=== PATIENT | male | born 1965 | race Caucasian/White ===

== ENCOUNTER 2022-09-13 14:06 | Inpatient (IN) | payer OTHER ==
[2022-09-13 16:00] VITALS: BMI 31.7
[2022-09-13] MEDS ORDERED: ACETAMINOPHEN 325 MG TABLET (FP) PO PRN ×2 (16:57)
[2022-09-13] MEDS ORDERED: BENZOCAINE/MENTHOL (CHLORASEPTIC ) LOZENGE MM PRN (16:57)
[2022-09-13] MEDS ORDERED: ONDANSETRON *ODT* 4 MG TABLET SL PRN (16:57)
[2022-09-13] MEDS ORDERED: MAG HYDROX/AL HYDROX/SIMETH 30 ML UNIT-DOSE CUP PO PRN (16:57)
[2022-09-13] MEDS ORDERED: MAGNESIUM HYDROX 2400MG/30ML ORAL SUSPENSION 30 ML CUP PO PRN (16:57)
[2022-09-13] MEDS ORDERED: guaiFENesin 200 MG/10 ML 10 ML UNIT-DOSE CUPS PO PRN (16:57)
[2022-09-13] MEDS ORDERED: POLYETHYLENE GLYCOL (HEALTHYLAX) 3350 17 GM PACKET PO PRN (16:57)
[2022-09-13] MEDS ORDERED: LOPERAMIDE HCL 2 MG CAPSULE PO PRN (16:57)
[2022-09-13] MEDS ORDERED: P-EPHED 60MG/TRIPROLIDI 2.5MG TABLET PO PRN (16:57)
[2022-09-13] MEDS ORDERED: METHOCARBAMOL 500 MG TABLET PO PRN (16:57)
[2022-09-13] MEDS ORDERED: DICYCLOMINE HCL 10 MG CAPSULE PO PRN (16:57)
[2022-09-13] MEDS ORDERED: BISMUTH SUBSALICYLATE 524 MG/30 ML PO PRN (16:57)
[2022-09-13] MEDS ORDERED: diazePAM 5 MG TABLET ONE (18:13)
[2022-09-13] MEDS ORDERED: diazePAM 5 MG TABLET PO SCH (18:15)
[2022-09-13] MEDS ORDERED: TIZANIDINE HCL 4 MG TABLET PO PRN (19:00)
[2022-09-13] MEDS ORDERED: traZODone HCL 50 MG TABLET (FP) PO ONE (22:00)
[2022-09-13] MEDS: MELATONIN 5 MG TABLETS PO PRN (22:23)
[2022-09-13] MEDS: CARVEDILOL 25 MG TABLET (FP) PO SCH (22:23)
[2022-09-13] MEDS: THIAMINE HCL 100 MG TABLET (FP) PO SCH (22:23)
[2022-09-13] MEDS: diazePAM 5 MG TABLET PO PRN (22:24)
[2022-09-13] MEDS: ATORVASTATIN CA 40 MG TABLET (FP) PO SCH (23:01)
[2022-09-14] MEDS: diazePAM 5 MG TABLET PO SCH ×4 (05:37→22:13)
[2022-09-14] MEDS: CARVEDILOL 25 MG TABLET (FP) PO SCH ×2 (10:18→22:12)
[2022-09-14] MEDS: PRENATAL VITAMINS W/ FOLIC ACID TABLET (FP) PO SCH (10:18)
[2022-09-14] MEDS: NIFEdipine E.R. 90 MG TABLET PO SCH (10:18)
[2022-09-14] MEDS: ASPIRIN 81 MG CHEWABLE TABLETS PO SCH (10:18)
[2022-09-14 10:43] LABS: HEMATOCRIT 38.4 % (35.4-49); HEMOGLOBIN 13.4 GM/dL (11.7-16.9); MCH 30.8 pg (25.7-33.7); MCHC 34.9 g/dl (32.0-35.9); MEAN CELL VOLUME 88.4 fl (80-96); MEAN PLT VOLUME 7.1 fl (7.5-11.1); PLATELET COUNT 288 10^3/uL (134-434); RBC 4.34 M/mm3 (4.00-5.60); RDW 13.6 % (11.9-15.9); WHITE BLOOD COUNT 10.4 K/mm3 (4.0-10.0)
[2022-09-14 12:42] LABS: CALCIUM 9.4 mg/dL (8.5-10.1)
[2022-09-14 12:43] LABS: ALBUMIN 3.7 g/dl (3.4-5.0); BLOOD UREA NITROGEN 50.1 mg/dL (7-18)
[2022-09-14 12:45] LABS: CREATININE 3.2 mg/dL (0.55-1.3)
[2022-09-14 12:46] LABS: BILIRUBIN,TOTAL 0.6 mg/dL (0.2-1)
[2022-09-14 12:47] LABS: TOT PROT 7.8 g/dl (6.4-8.2)
[2022-09-14] MEDS ORDERED: traZODone HCL 100 MG TABLET (FP) PO SCH (22:00)
[2022-09-14] MEDS: MELATONIN 5 MG TABLETS PO PRN (22:11)
[2022-09-14] MEDS: traZODone HCL 50 MG TABLET (FP) PO SCH (22:12)
[2022-09-14] MEDS: ATORVASTATIN CA 40 MG TABLET (FP) PO SCH (22:12)
[2022-09-14] MEDS: hydrOXYzine PAMOATE 25 MG CAPSULE (FP) PO PRN (22:12)
[2022-09-14] MEDS: THIAMINE HCL 100 MG TABLET (FP) PO SCH (22:12)
[2022-09-15] MEDS: diazePAM 5 MG TABLET PO SCH ×4 (05:53→22:14)
[2022-09-15] MEDS: PRENATAL VITAMINS W/ FOLIC ACID TABLET (FP) PO SCH (10:08)
[2022-09-15] MEDS: NIFEdipine E.R. 90 MG TABLET PO SCH (10:09)
[2022-09-15] MEDS: ASPIRIN 81 MG CHEWABLE TABLETS PO SCH (10:09)
[2022-09-15] MEDS: diazePAM 5 MG TABLET PO PRN (10:11)
[2022-09-15] MEDS: CARVEDILOL 25 MG TABLET (FP) PO SCH ×2 (11:46→22:13)
[2022-09-15] MEDS: ATORVASTATIN CA 40 MG TABLET (FP) PO SCH (22:13)
[2022-09-15] MEDS: traZODone HCL 50 MG TABLET (FP) PO SCH (22:13)
[2022-09-15] MEDS: THIAMINE HCL 100 MG TABLET (FP) PO SCH (22:13)
[2022-09-15] MEDS: MELATONIN 5 MG TABLETS PO PRN (22:13)
[2022-09-15] MEDS: hydrOXYzine PAMOATE 25 MG CAPSULE (FP) PO PRN (22:13)
[2022-09-16] MEDS: diazePAM 5 MG TABLET PO SCH ×2 (05:58→18:13)
[2022-09-16] MEDS: CARVEDILOL 25 MG TABLET (FP) PO SCH ×2 (10:04→22:14)
[2022-09-16] MEDS: PRENATAL VITAMINS W/ FOLIC ACID TABLET (FP) PO SCH (10:04)
[2022-09-16] MEDS: NIFEdipine E.R. 90 MG TABLET PO SCH (10:04)
[2022-09-16] MEDS: ASPIRIN 81 MG CHEWABLE TABLETS PO SCH (10:04)
[2022-09-16] MEDS: diazePAM 5 MG TABLET PO PRN (10:06)
[2022-09-16] MEDS: MELATONIN 5 MG TABLETS PO PRN (22:13)
[2022-09-16] MEDS: hydrOXYzine PAMOATE 25 MG CAPSULE (FP) PO PRN (22:14)
[2022-09-16] MEDS: THIAMINE HCL 100 MG TABLET (FP) PO SCH (22:14)
[2022-09-16] MEDS: ATORVASTATIN CA 40 MG TABLET (FP) PO SCH (22:14)
[2022-09-16] MEDS: traZODone HCL 50 MG TABLET (FP) PO SCH (22:14)
[2022-09-17] MEDS ORDERED: diazePAM 5 MG TABLET PO ONE (06:00)
[2022-09-17] MEDS: ASPIRIN 81 MG CHEWABLE TABLETS PO SCH (10:09)
[2022-09-17] MEDS: PRENATAL VITAMINS W/ FOLIC ACID TABLET (FP) PO SCH (10:09)
[2022-09-17] MEDS: CARVEDILOL 25 MG TABLET (FP) PO SCH (10:09)
[2022-09-17] MEDS: NIFEdipine E.R. 90 MG TABLET PO SCH (10:09)
[2022-09-17 10:24] VITALS: BP 119/73; PULSE 74; RESP 18; TEMP 97.5
== END 2022-09-17 11:05 | disposition home or self-care (01) | DRG 897 ==
LOC: YASAS 14:06 → Y3N 18:48
PROVIDERS: ADMIT Allergy & Immunology; ATTEND Family Medicine
PROC: HZ2ZZZZ Detoxification Services for Substance Abuse Treatment (ICD-10-PCS; principal; 2022-09-13)
DX: F10.230 Alcohol dependence with withdrawal, uncomplicated (principal); F14.20 Cocaine dependence, uncomplicated; I69.851 Hemiplegia and hemiparesis following other cerebrovascular disease affecting right dominant side; F41.9 Anxiety disorder, unspecified; G47.00 Insomnia, unspecified; I10 Essential (primary) hypertension; E78.2 Mixed hyperlipidemia; N28.1 Cyst of kidney, acquired; Z88.8 Allergy status to other drugs, medicaments and biological substances
CPT/HCPCS: 36415; 80053; 82962; 85027; 86780; C9803-CS; U0003; U0005